=== PATIENT | female | born 1985 | race Caucasian/White ===

== ENCOUNTER 2018-01-10 15:55 | Inpatient (IN) | payer BC ==
[~2018-01-10] VITALS: Ht 165.1 cm; Wt 87.3 kg
[2018-01-10] MEDS ORDERED: LACTATED RINGER'S 1000ML 1,000 ML IV SCH ×2 (16:11→20:55)
[2018-01-10] MEDS ORDERED: LACTATED RINGER'S 1000ML 500 ML IV ONE (16:11)
[2018-01-10] MEDS ORDERED: ONDANSETRON 4 MG TAB PO PRN (16:15)
[2018-01-10] MEDS ORDERED: ACETAMINOPHEN 325 MG TAB PO PRN (16:15)
[2018-01-10 16:34] VITALS: Ht 165.1 cm; Wt 87.3 kg
[2018-01-10 16:34] LABS: BASO % 0.2 %; BASO ABS # 0.02 K/uL (0-0.2); EOS % 0.5 %; EOS ABS # 0.07 K/uL (0-0.5); HEMATOCRIT 37.7 % (37-47); HEMOGLOBIN 13.6 g/dL (12.0-16.0); IG# 0.08 K/uL (0.00-0.02); LYMPH % 16.6 %; LYMPH ABS # 2.13 K/uL (1.2-3.4); MEAN CELL VOLUME 88.5 fL (80-100); MEAN CORPUSCULAR HEMOGLOBIN 31.9 pg (25-34); MEAN CORPUSCULAR HGB CONC 36.1 g/dl (32-36); MEAN PLATELET VOLUME 11.7 fL (7.4-10.4); MONO % 7.6 %; MONO ABS # 0.98 K/uL (0.11-0.59); NEUT % 74.5 %; NEUT ABS # 9.57 K/uL (1.4-6.5); PLATELET COUNT 189 K/uL (130-400); RED CELL DISTRIBUTION WIDTH CV 12.9 % (11.5-14.5); RED CELL DISTRIBUTION WIDTH SD 41.2 fL (36.4-46.3); WHITE BLOOD COUNT 12.85 K/uL (4.8-10.8)
[2018-01-10] MEDS ORDERED: PREN-63 (16:34)
[2018-01-10 16:52] LABS: ALBUMIN 2.6 gm/dl (3.4-5.0); CALCIUM 8.6 mg/dl (8.5-10.1); CREATININE 0.65 mg/dl (0.60-1.20); POTASSIUM 3.9 mmol/L (3.5-5.1)
[2018-01-10 16:55] LABS: TOTAL PROTEIN 6.4 gm/dl (6.4-8.2)
[2018-01-10] MEDS: LABETALOL HCL 100 MG TAB PO SCH (18:21)
[2018-01-10] MEDS ORDERED: LACTATED RINGER'S 1000ML 1,000 ML IV PRN (20:55)
[2018-01-10] MEDS ORDERED: MAGNESIUM SULFATE / WTR 1,000 ML IV ONE (20:58)
[2018-01-10] MEDS ORDERED: LABETALOL HCL IV 5 MG/ML 20ML IV PRN (21:00)
[2018-01-10] MEDS ORDERED: HydrALAZINE HCL 20 MG/ML VIAL IV. PRN (21:00)
[2018-01-10] MEDS ORDERED: PENICILLIN G POTASSIUM IV 3 MU in DEXTROSE 5% 100ML 100 ML IV PRN (21:00)
[2018-01-10] MEDS ORDERED: BETAMETH SOD PHOS/ACETATE IA 6 MG/ML IM STA (21:15)
[2018-01-10] MEDS ORDERED: PENICILLIN G POTASSIUM IV 6 MU in DEXTROSE 5% 250ML 250 ML IV ONE (21:15)
[2018-01-10] MEDS ORDERED: DINOPROSTONE 10 MG INSERT PV ONE (21:15)
[2018-01-10] MEDS ORDERED: MAG SULFATE BOLUS FROM BAG IV ONE (21:30)
--- NOTE | 2018-01-10 22:41 | DIAGNOSTIC IMAGING REPORT ---
LIMITED (US) CLINICAL HISTORY: growth and ALIS COMPARISON STUDY: No previous studies for comparison. TECHNIQUE: Transabdominal sonography of the fetus was performed. FINDINGS: Please note that a dedicated anatomical survey was not performed. A single viable intrauterine gestation is noted with normal heart rate of 133 bpm. Presentation is vertex. The cervix was not well visualized on this exam. The placenta is located anteriorly and is within normal limits. Amniotic fluid index is normal at 10.6 cm. Biparietal diameter measured 9.3 cm which corresponds to an estimated gestational age of 38 weeks and 0 days. The head circumference measured 32.7 cm which corresponds to an estimated gestational age of 37 weeks and 0 days. Abdominal circumference measured 29.9 cm which corresponds to an estimated gestational age of 33 weeks and 6 days. Femur length measured 6.6 cm which corresponds to an estimated gestational age of 34 weeks and 1 day. Estimated weight on this exam is 5 pounds and 8 ounces. IMPRESSION: 1. Single viable intrauterine gestation with normal heart rate of 133 bpm. 2. Normal amniotic fluid index of 10.6 cm. 3. Estimated weight of 5 pounds and 8 ounces on this exam. Please see measurements above. 4. Anterior placenta with no placental abnormality identified. 5. Cervix not well visualized on this exam. Electronically signed by: Alcon Pete M.D. 01/10/2018 10:40 PM Dictated Date/Time: 01/10/2018 10:35 PM
[2018-01-10] MEDS ORDERED: LIDOCAINE HCL 2% JELLY 30 ML TUBE EXT ONE (23:47)
[2018-01-10] MEDS: MAGNESIUM SULFATE / WTR 1,000 ML IV SCH (23:54)
[2018-01-11] MEDS ORDERED: BUPIVACAINE 0.25% 30 ML VIAL ONE (05:15)
[2018-01-11] MEDS ORDERED: EpHEDrine SULFATE INJ 50 MG/ML AMP ONE (05:15)
[2018-01-11] MEDS ORDERED: FENTANYL CITRATE INJ 50 MCG/1 ML 2 ML VIAL ONE (05:16)
[2018-01-11] MEDS ORDERED: FENTANYL 2MCG/ML ROPIV 1.25MG/ML 100ML BAG EPI ONE (05:17)
[2018-01-11] MEDS ORDERED: LACTATED RINGER'S 1000ML 500 ML IV PRN (06:31)
[2018-01-11] MEDS ORDERED: NALOXONE HCL INJ 1 MG in SODIUM CHLORIDE 0.9% 1000ML 1,000 ML IV PRN ×4 (06:31)
[2018-01-11] MEDS ORDERED: OXYTOCIN 30 UNITS/500ML NSS IV ONE (06:44)
[2018-01-11] MEDS ORDERED: ONDANSETRON INJ 2 MG/ML 2 ML VIAL IV PRN (06:45)
[2018-01-11] MEDS ORDERED: NALOXONE HCL INJ 0.4 MG/1 ML VIAL/CARP IV PRN (06:45)
[2018-01-11] MEDS ORDERED: DiphenhydrAMINE HCL 50 MG/ML VIAL IV PRN (06:45)
[2018-01-11] MEDS ORDERED: NALBUPHINE HCL INJ 10 MG/ML AMP IV PRN (06:45)
[2018-01-11] MEDS ORDERED: EpHEDrine SULFATE INJ 50 MG/ML AMP IV PRN (06:45)
[2018-01-11] MEDS ORDERED: PROMETHAZINE HCL INJ 25 MG in SODIUM CHLORIDE 0.9% 50ML 50 ML IV PRN (06:45)
[2018-01-11] MEDS ORDERED: FENTANYL 2MCG/ML ROPIV 1.25MG/ML 100ML BAG EPI PRN (06:45)
[2018-01-11] MEDS ORDERED: LANOLIN OINT EXT PRN (07:15)
[2018-01-11] MEDS ORDERED: OXYCODONE/ACETAMINOPHEN 5-325 TAB PO PRN (07:15)
[2018-01-11] MEDS ORDERED: MEASLES, MUMPS & RUBELLA VIRUS VIAL SQ. ONE (07:15)
[2018-01-11] MEDS ORDERED: BENZOCAINE 20% AER SPR 82.5 GM CAN EXT PRN (07:15)
[2018-01-11] MEDS ORDERED: DIPHTHERIA/TETANUS/PERTUSSIS 0.5 ML SYR/VIAL IM. ONE (07:15)
[2018-01-11] MEDS ORDERED: ACETAMINOPHEN 325 MG TAB PO PRN (07:15)
[2018-01-11] MEDS ORDERED: SUPERCREAM 0.870 % 15GM JAR EXT PRN (07:15)
[2018-01-11] MEDS ORDERED: OXYTOCIN 30 UNITS/500ML NSS IV PRN (07:15)
[2018-01-11] MEDS ORDERED: HYDROCORTISONE ACETATE 25 MG SUPP PR PRN (07:15)
--- NOTE | 2018-01-11 07:35 | Anesthesia Procedure Note ---
Anesthesia Epidural Removal Nt Date & Time Jan 11, 2018 at 07:35 Vital Signs Pain Intensity: 0.0 Notes Mental Status: alert / awake / arousable, participated in evaluation Nausea / Vomiting: adequately controlled Pain: adequately controlled Airway Patency, RR, SpO2: stable & adequate BP & HR: stable & adequate Hydration State: stable & adequate Neuraxial Anesthesia: was administered, sensory block is resolving Anesthetic Complications: no major complications apparent, pt satisfied with anesthetic care Epidural: removed without complications, with tip intact
[2018-01-11] MEDS: LABETALOL HCL 100 MG TAB PO SCH ×2 (08:07→20:01)
[2018-01-11] MEDS: DOCUSATE SODIUM 100 MG CAP PO SCH ×2 (08:07→20:01)
[2018-01-11] MEDS: FERROUS SULFATE 325 MG TAB PO SCH (08:07)
--- NOTE | 2018-01-11 08:19 | DELIVERY SUMMARY ---
DATE OF OPERATION: 01/11/2018 TIME OF DELIVERY: 06:50 a.m. TIME OF DELIVERY OF PLACENTA: 07:04 a.m. DETAILS OF DELIVERY: The patient is a 32-year-old G3, P0-0-2-0 at 36 weeks and 2 days of gestation who was admitted on 01/10/2018 for preclampsia with severe features. Her labor was induced with Cervidil and she progressed into active labor spontaneously ruptured membranes and so Cervidil was removed. She received epidural for pain and then she progressed to fully dilatation. She was found to be fully dilated and desired to push. She pushed with 3 contractions and baby's heart rate was having declarations to 80s. Perineum muscles and skin were tight holding the baby's head. After verbal consent was obtained, a right mediolateral episiotomy was opened. Baby's head was delivered without difficulty and then shoulders and the body came altogether. There was a nuchal cord around the neck x1, which was reduced and the baby was handed off to the mother, where mouth and nose were suctioned. Cord was clamped x2 at 30 second delay and cut and baby was handed to the waiting nursery team. Cord blood was obtained. Perineum and the vagina were checked for lacerations. There was only small right mediolateral episiotomy which was opened earlier and rectal exam was done and confirmed to be a second degree and good sphincter tone was noted. Gloves were changed. This was repaired with 2-0 Vicryl in a running locked fashion and skin in a subcuticular fashion. Rest of the vagina and perineum were intact. Placenta was found to be in the vagina, delivered spontaneously intact and complete. Uterus was explored and found to be empty. Lower segment was cleared off all clots and debris. Fundus was firm. EBL was 200. Mom and baby tolerated the procedure well. Baby was a viable male , Apgars 8/9. Weight was 2180 gr. No complications happened and I was present during whole procedure. I attest to the content of the Intraoperative Record and any orders documented therein. Any exceptions are noted below. MTDD
[2018-01-11] MEDS: LACTATED RINGER'S 1000ML 1,000 ML IV SCH ×2 (09:04→20:49)
[2018-01-11] MEDS: CALCIUM CARBONATE 500 MG CHEWABLE PO PRN ×2 (16:54→23:05)
[2018-01-11] MEDS: IBUPROFEN 600 MG TAB PO PRN (17:56)
[2018-01-11] MEDS: MAGNESIUM SULFATE / WTR 1,000 ML IV SCH (23:35)
[2018-01-12] MEDS: IBUPROFEN 600 MG TAB PO PRN ×4 (01:44→21:32)
[2018-01-12 06:00] LABS: HEMATOCRIT 31.1 % (37-47); MEAN CELL VOLUME 89.9 fL (80-100); MEAN CORPUSCULAR HEMOGLOBIN 31.8 pg (25-34); MEAN CORPUSCULAR HGB CONC 35.4 g/dl (32-36); MEAN PLATELET VOLUME 10.9 fL (7.4-10.4); PLATELET COUNT 197 K/uL (130-400); RED CELL DISTRIBUTION WIDTH CV 13.5 % (11.5-14.5); RED CELL DISTRIBUTION WIDTH SD 44.1 fL (36.4-46.3); WHITE BLOOD COUNT 21.86 K/uL (4.8-10.8)
[2018-01-12 06:39] LABS: ALBUMIN 2.3 gm/dl (3.4-5.0); CREATININE 0.69 mg/dl (0.60-1.20); POTASSIUM 4.2 mmol/L (3.5-5.1)
[2018-01-12 06:44] LABS: TOTAL PROTEIN 5.7 gm/dl (6.4-8.2)
[2018-01-12] MEDS: DOCUSATE SODIUM 100 MG CAP PO SCH ×2 (08:11→19:47)
[2018-01-12] MEDS: LABETALOL HCL 100 MG TAB PO SCH ×2 (08:11→19:49)
[2018-01-12] MEDS: FERROUS SULFATE 325 MG TAB PO SCH (08:11)
--- NOTE | 2018-01-12 10:49 | OB/GYN Progress Note ---
TRAIN EXAMINER Progress Note Date of Service Jan 12, 2018. Subjective conversation w/ patient, physical exam Ambulation: limited ambulation Voiding: no voiding problems Passing Gas: Yes Diet Tolerance: Regular Diet Lochia: Small Feeding Type: Breast Feeding Objective Physical Exam General Appearance: WELL-APPEARING, NO APPARENT DISTRESS Abdomen: non tender, soft Fundus: Firm Extremities: non-tender, normal inspection, no pedal edema, no calf tenderness Laboratory Results Last 24 Hours Test 01/12/18 05:42 White Blood Count 21.86 K/uL Red Blood Count 3.46 M/uL Hemoglobin 11.0 g/dL Hematocrit 31.1 % Mean Corpuscular Volume 89.9 fL Mean Corpuscular Hemoglobin 31.8 pg Mean Corpuscular Hemoglobin Concent 35.4 g/dl RDW Standard Deviation 44.1 fL RDW Coefficient of Variation 13.5 % Platelet Count 197 K/uL Mean Platelet Volume 10.9 fL Sodium Level 136 mmol/L Potassium Level 4.2 mmol/L Chloride Level 105 mmol/L Carbon Dioxide Level 21 mmol/L Anion Gap 10.0 mmol/L Blood Urea Nitrogen 11 mg/dl Creatinine 0.69 mg/dl Est Creatinine Clear Calc Drug Dose 130.1 ml/min Estimated GFR () 135.4 Estimated GFR (Non- 116.8 BUN/Creatinine Ratio 15.5 Random Glucose 102 mg/dl Calcium Level 7.0 mg/dl Total Bilirubin 0.4 mg/dl Aspartate Amino Transf (AST/SGOT) 26 U/L Alanine Aminotransferase (ALT/SGPT) 17 U/L Alkaline Phosphatase 187 U/L Total Protein 5.7 gm/dl Albumin 2.3 gm/dl Globulin 3.4 gm/dl Albumin/Globulin Ratio 0.7 Assessment and Plan Post- Day Number: 1 Continue Routine Care: d/c Fernandes and Magnesium sulfate repeat CBC in AM
[2018-01-12 12:25] VITALS: BP 133/82; PULSE 82; TEMP 36.9
[2018-01-12 15:40] VITALS: BP 136/92; PULSE 87; TEMP 37.1
[2018-01-12] MEDS ORDERED: BISACODYL 5 MG TABEC PO SCH (20:00)
[2018-01-12 23:50] VITALS: BP 121/75; PULSE 91; TEMP 37
[2018-01-13] MEDS: IBUPROFEN 600 MG TAB PO PRN ×2 (02:47→08:36)
[2018-01-13 04:57] LABS: HEMATOCRIT 28.9 % (37-47); MEAN CORPUSCULAR HEMOGLOBIN 31.8 pg (25-34); MEAN PLATELET VOLUME 10.3 fL (7.4-10.4); PLATELET COUNT 173 K/uL (130-400); RED CELL DISTRIBUTION WIDTH CV 13.8 % (11.5-14.5); RED CELL DISTRIBUTION WIDTH SD 45.6 fL (36.4-46.3); WHITE BLOOD COUNT 17.98 K/uL (4.8-10.8)
[2018-01-13 05:25] LABS: MEAN CORPUSCULAR HGB CONC 34.6 g/dl (32-36)
[2018-01-13 05:30] LABS: ALBUMIN 2.2 gm/dl (3.4-5.0); ALKALINE PHOSPHATASE 166 U/L (45-117); ALT/SGPT 17 U/L (12-78); AST/SGOT 21 U/L (15-37); TOTAL PROTEIN 5.5 gm/dl (6.4-8.2)
[2018-01-13] MEDS ORDERED: BISACODYL 10 MG SUPP PR PRN (07:00)
[2018-01-13 07:45] VITALS: BP 145/87; PULSE 94; TEMP 37.4
[2018-01-13] MEDS: LABETALOL HCL 100 MG TAB PO SCH (08:34)
[2018-01-13] MEDS: DOCUSATE SODIUM 100 MG CAP PO SCH (08:36)
[2018-01-13] MEDS: FERROUS SULFATE 325 MG TAB PO SCH (08:36)
[2018-01-13] MEDS ORDERED: MTR600X PO (09:40)
--- NOTE | 2018-01-13 09:41 | Discharge Instructions ---
Discharge Instructions Date of Service Jan 13, 2018. Admission Reason for Admission: Elevated Blood Pressure Discharge Discharge Diagnosis / Problem: TERM DELIVERED Discharge Goals Goal(s): Routine recovery after delivery Activity Recommendations Activity Limitations: as noted below Lifting Limitations: no more than 10 pounds Exercise/Sports Limitations: gradually increase as tolerated May Resume Sexual Activity: after follow-up appointment Shower/Bathe: no limitations Driving or Machine Use: resume 3 days after discharge . Instructions / Follow-Up Instructions / Follow-Up ACTIVITY RECOMMENDATIONS: * Gradual return to full activity over the next 2-3 weeks. * No lifting - nothing heavier than baby over the next 2-3 weeks. * Do not engage in vigorous exercise, sexual activity or sports until cleared by your physician. * Do not drive or operate any motorized equipment until cleared by your physician. * You may shower/bathe daily. BREAST CARE: If you are not breast feeding: * Wear a supportive bra 24 hours a day for one to two weeks. * Avoid stimulating your breasts and nipples as much as possible during the first few weeks after delivery. * When taking a shower, have the warm water hit your back, not breasts. * When your breasts feel full, apply ice packs. Usually three to four times a day helps ease the discomfort. * Take a mild pain medication (Tylenol/Motrin) when you are uncomfortable. If breast feeding: * Use breast milk to lubricate nipples. Lansinoh cream may be used for sore nipples. You do not need to remove cream prior to breast feeding. If using a different brand of cream, check the label for directions regarding removal of cream prior to nursing. * Wear a supportive bra. * If having problems with breasts or breast feeding, call a cycle consultant or your health care provider. EPISIOTOMY CARE: After delivery, if you have an episiotomy (stitches), the following steps will ease discomfort and aid healing. * For the first 24 hours after delivery, place ice packs next to your episiotomy to help reduce swelling. * After the first 24 hour-period, sitz baths, either portable or in the tub, are suggested. A shower with a shower arm sprayed over the episiotomy may be comforting. * Karlie care should be done after each voiding and bowel movement. Squirt warm water from a plastic bottle over the perineum (region of the body between the anus and urinary opening) and pat dry. * Use Dermoplast to ease discomfort. Shake container. [place] directly over the episiotomy. * Place a Tucks on a clean sanitary pad next to your episiotomy. OVER THE COUNTER MEDICATION: * For discomfort or pain, you may use Acetaminophen (Tylenol), Ibuprofen (Advil ), or Naproxen (Aleve) following the package directions. * For constipation you may use Colace following the package directions. SPECIAL CARE INSTRUCTIONS: When you are discharged from the hospital, it is important for you to follow the instructions listed below: * During the first week at home, you should be able to care for yourself and your baby. In addition, the usual light household activities are encouraged. * Limit your activities to the way you feel. Do not try to clean the house or move furniture. Be sensible. * If you actively engage in sports and have done so up until the time of your delivery, you may resume these activities as soon as you feel able. This may take up to one month or even longer. Use good judgment. * Continue to take your vitamins for at least six weeks after the of your baby. * Your diet need not be limited unless you were on a special diet before your delivery. Breast-feeding mothers need around 2500 calories per day and at least 64-80 ounces of fluid per day (8 to 10 glasses). * You should eat foods from the four major food groups. Crash diets or fad diets are to be avoided. Eating lean meats, fresh fruits and vegetables, low-fat dairy products, high fiber foods and a regular exercise program, will help you get back to your pre- weight without putting your health at risk. * Constipation is sometimes a problem after delivery. Take a mild laxative as needed. If breast feeding, Milk of Magnesia is acceptable to use. You may use a suppository or Fleets enema if no episiotomy. * A daily shower or tub bath is suggested. Be sure to thoroughly and gently dry the perineum. * A bloody vaginal discharge will usually continue until around four weeks post . A small amount of bleeding may continue for as long as six weeks. Vaginal discharge changes from the bright red bleeding after delivery to pink then brownish and finally yellowish-pink before becoming white and disappearing. * Bleeding may increase with activity. Your first period may come in 4-8 weeks. If you are breast feeding, your period may be delayed even longer. * [place] (sex) can begin whenever both you and your partner feel comfortable and do not have any form of genital infection. It is recommended that you wait until after your return appointment and discuss with your physician. If you have questions, please talk to your health care practitioner. A condom should be used to prevent infection and . * Foreplay, gentle intercourse and lubrication is very important the first several times to prevent pain. A water-based lubricant such as K-Y jelly or Astroglide may be used. * Tampons may be used six weeks after delivery. * Douching should be avoided for 6 weeks after delivery. * If you have RH negative blood and your baby is RH positive, you will receive RHOGAM by injection prior to discharge. The nurse will give you a card to keep with you that has the date and place that you received RHOGAM after delivery. * During your care, you had a Rubella screen done to check for the presence of rubella antibodies in your blood. If your test was negative, you will receive a Rubella vaccine prior to discharge. This vaccine may cause a fever, soreness at the injection site and flu-like symptoms. If these symptoms persist, notify your health care practitioner. is not advised for three months after a Rubella vaccine. There is a higher chance of having a baby with defects if conceived within three months of getting the vaccine. * If you were discharged 24 hours from delivery or before 48 hours: Visiting nurses will come to your home 48 hours after discharge to assess you and your baby. The visiting nurse will meet with you while you are in the hospital to arrange a time and get directions to your home. * Verbalizes understanding of car seat law as reviewed with patient nursing. * Car Seat hand-out given and reviewed with patient by nursing. * Shaken baby information reviewed with patient by nursing. Call you doctor if: * Heavy bleeding (saturating several pads an hour) or passing clots the size of your fist. * A fever >101 degrees F (38.3 degrees C) on two occasions four hours apart and/or chills. * Unusual pain in the pelvic or vaginal areas. * "Baby Blues" lasting longer than two weeks. If you have any questions or concerns, call your health care practitioner at . FOLLOW-UP VISIT: * Please call the office at to schedule a 6 week examination. It is important you keep this appointment. * It is important for you to make arrangements for either yearly or twice yearly check-ups thereafter. Current Hospital Diet Patient's current hospital diet: Regular OB Diet Discharge Diet Recommended Diet: Regular OB Diet Fluid Restriction: None Pending Studies Studies pending at discharge: no Medical Emergencies . Who to Call and When: Medical Emergencies: If at any time you feel your situation is an emergency, please call 911 immediately. . Non-Emergent Contact Non-Emergency issues call your: Primary Care Provider . . "Provider Documentation" section prepared by Freddy Gandhi. . VTE Core Measure Inpt VTE Proph given/why not?: Treatment not indicated
--- NOTE | 2018-01-13 09:54 | OB/GYN Progress Note ---
BOX HINGE AND LOCK ATTACHER Progress Note Date of Service Jan 13, 2018. Subjective conversation w/ patient, physical exam Ambulation: ambulating normally Voiding: no incontinence Passing Gas: Yes Diet Tolerance: Regular Diet Lochia: Small Feeding Type: Breast Feeding Objective Vital Signs Date Time Temp Pulse Resp B/P (MAP) Pulse Ox O2 Delivery O2 Flow Rate FiO2 01/12/18 23:50 Room Air 01/12/18 23:50 37.0 91 20 121/75 (90) Room Air 01/12/18 15:40 37.1 87 20 136/92 (107) 01/12/18 12:25 Room Air 01/12/18 12:25 36.9 82 20 133/82 (99) Room Air Physical Exam General Appearance: WELL-APPEARING, NO APPARENT DISTRESS Abdomen: non tender Fundus: Firm Extremities: non-tender, normal inspection, no pedal edema, no calf tenderness Laboratory Results Last 24 Hours Test 01/13/18 04:49 White Blood Count 17.98 K/uL Red Blood Count 3.14 M/uL Hemoglobin 10.0 g/dL Hematocrit 28.9 % Mean Corpuscular Volume 92.0 fL Mean Corpuscular Hemoglobin 31.8 pg Mean Corpuscular Hemoglobin Concent 34.6 g/dl RDW Standard Deviation 45.6 fL RDW Coefficient of Variation 13.8 % Platelet Count 173 K/uL Mean Platelet Volume 10.3 fL Total Bilirubin 0.2 mg/dl Direct Bilirubin < 0.1 mg/dl Aspartate Amino Transf (AST/SGOT) 21 U/L Alanine Aminotransferase (ALT/SGPT) 17 U/L Alkaline Phosphatase 166 U/L Total Protein 5.5 gm/dl Albumin 2.2 gm/dl Assessment and Plan Post- Day Number: 2 Continue Routine Care: DISCHARGED FOLLOW UP IN 1 WEEK IN OFFICE FOR BP CHECK
[2018-01-13 11:15] VITALS: BP_DIAS 87; PULSE 94; TEMP 37.4
[2018-01-13] MEDS ORDERED: LBT100 PO (11:18)
== END 2018-01-13 11:55 | disposition home or self-care (01) | DRG 775 ==
LOC: C.OPB 15:55 → C.LD 15:55 → C.OPB 20:57 → C.LD 22:08 → C.OBG 01-12 14:43
PROVIDERS: ADMIT Obstetrics & Gynecology; ATTEND Obstetrics & Gynecology
PROC: 3E0P7GC Introduction of Other Therapeutic Substance into Female Reproductive, Via Natural or Artificial Opening (ICD-10-PCS; principal; 2018-01-10)
PROC: 10E0XZZ Delivery of Products of Conception, External Approach (ICD-10-PCS; 2018-01-11)
PROC: 0W8NXZZ Division of Female Perineum, External Approach (ICD-10-PCS; 2018-01-11)
DX: O14.14 Severe pre-eclampsia complicating childbirth (principal); O69.81X0 Labor and delivery complicated by cord around neck, without compression, not applicable or unspecified; O76 Abnormality in fetal heart rate and rhythm complicating labor and delivery; Z3A.36 36 weeks gestation of pregnancy; Z37.0 Single live birth

== ENCOUNTER 2021-05-27 15:32 | Inpatient (IN) ==
[2021-05-27] MEDS ORDERED: OXYTOCIN 30 UNITS/500 ML BAG IV PRN ×3 (16:32→22:53)
[2021-05-27 17:07] LABS: Hematocrit (blood only) 36.1 % (37-47); Hemoglobin 12.9 g/dL (12.0-16.0); Mean Corpuscular Hemoglobin 32.3 pg (25-34); Mean Corpuscular Hgb Conc 35.7 g/dL (32-36); Mean Corpuscular Volume 90.5 fL (80-100); Mean Platelet Volume 11.5 fL (7.4-10.4); Platelet Count 191 K/uL (130-400); RDW Coefficient of Variation 13.5 % (11.5-14.5); RDW Standard Deviation 43.9 fL (36.4-46.3); Red Blood Count 3.99 M/uL (4.2-5.4); White Blood Count 12.53 K/uL (4.8-10.8)
--- NOTE | 2021-05-27 17:20 | Labor Progress Brief Note ---
Date of Service May 27, 2021 Subjective Reason For Note: Routine Evaluation Admit Note 36 F P1011 at 36.3 weeks admitted with SROM clear fluid this AM. Cervix 3/60/- 2/vertex/posterior/firm. GBS is negativwe. FHT Cat 1 with irregular contractions. EFW 7 lbs. Will admit and start Oxytocin to augment contractions. Anticipate normal delivery. Assessment & Plan Admission and Anticipated Discharge Date Admission Date: May 27, 2021 Results & Data ([facility]) Vital Signs (Past 12 Hours) Vital Signs Temp Pulse Resp BP 05/27/21 16:30 22 05/27/21 16:00 37.1 C 20 05/27/21 15:53 95 H 134/80
[2021-05-27] MEDS: LACTATED RINGER'S 1,000 ML IV PRN ×2 (18:13→19:48)
[2021-05-27] MEDS ORDERED: BUPIVACAINE 0.25% 30 ML VIAL ONE (18:54)
[2021-05-27] MEDS ORDERED: ePHEDrine sulfate 50 MG/ML AMP ONE (18:54)
[2021-05-27] MEDS ORDERED: SODIUM CHLORIDE 0.9% INJ 10 ML VIAL ONE (18:54)
[2021-05-27] MEDS ORDERED: fentaNYL citrate 100 MCG/2 ML VIAL ONE (18:55)
[2021-05-27] MEDS ORDERED: fentaNYL 2MCG/ML ROPIVACAINE 1.25MG/ML 100 ML BAG EPI ONE (18:55)
[2021-05-27] MEDS ORDERED: NALOXONE HCL 1 MG in SODIUM CHLORIDE 0.9% 1000ML 1,000 ML IV PRN (19:26)
[2021-05-27] MEDS ORDERED: ePHEDrine sulfate 50 MG/ML AMP IV PRN (19:26)
[2021-05-27] MEDS ORDERED: NALOXONE HCL 0.4 MG/1 ML VIAL/CARP IV PRN (19:26)
[2021-05-27] MEDS ORDERED: NALBUPHINE HCL INJ 10 MG/ML AMP IV PRN (19:26)
[2021-05-27] MEDS ORDERED: fentaNYL 2MCG/ML ROPIVACAINE 1.25MG/ML 100 ML BAG EPI PRN (19:26)
[2021-05-27] MEDS ORDERED: diphenhydrAMINE 50 MG/ML VIAL IV PRN (19:26)
[2021-05-27] MEDS ORDERED: ONDANSETRON INJ 2 MG/ML 2 ML VIAL IV PRN (19:26)
--- NOTE | 2021-05-27 19:28 | Anesthesiology Consultation ---
Date of Service May 27, 2021 History Height/Weight Height: 5 ft 5 in Weight: 84.368 kg Allergies Allergy/AdvReac Type Severity Reaction Status Date / Time No Known Allergies Allergy Unverified 01/10/18 16:15 Medications Home Medications Medication Instructions Recorded Confirmed Last Taken aspirin 81 mg PO DAILY 05/27/21 05/27/21 05/26/21 prenat.vits,cristhian,bwi-bmcv-zbmik 1 tab PO DAILY 05/27/21 05/27/21 05/27/21 [ Vitamin] Active Medications Generic Name Dose Route Start Last Admin Trade Name Freq PRN Reason Stop Dose Admin Lactated Ringer's 1,000 mls @ 125 mls/hr 05/27/21 16:32 05/27/21 18:13 Lr IV 05/29/21 16:31 125 mls/hr .Q8H PRN Administration L&D Protocol Protocol Oxytocin 30 units in 500 mls @ 1 mls/hr 05/27/21 17:08 05/27/21 18:13 Pitocin IV 05/29/21 17:07 0.06 units/hr .Q24H PRN 1 mls/hr Labor Induction/Augmentation Administration Protocol 0.06 UNITS/HR Past Medical History Medical History Mitral valve regurgitation Preeclampsia Exercise / Class Metabolic Activity II 4-5 Yardwork/Stairs/Walk up hill Past Surgical History Surgical History No history of previous surgery Past Anesthesia History No Hx of Anesthesia Complications and No Family Hx of Anesthesia Complications History of PONV No Hx of PONV and No Hx of Motion Sickness Social History Smoking Status: Never smoker Hx Alcohol Use: No Hx Substance Use: No Physical Exam Vital Signs Last Vital Signs Temp 37.1 C 05/27/21 18:58 Pulse 97 H 05/27/21 19:44 Resp 18 05/27/21 18:58 BP 135/81 05/27/21 19:42 Pulse Ox 97 05/27/21 19:44 Testing Laboratory Results 05/27/21 16:49
--- NOTE | 2021-05-27 20:37 | Labor Progress Brief Note ---
Date of Service May 27, 2021 Assessment & Plan Admission and Anticipated Discharge Date Admission Date: May 27, 2021 Physical Exam Genitourinary: Manual OB Exam: + cervical dilation 4 cm, + cervical effacement 80%, + station -2 and + amniotic fluid clear OB Exam Monitor Tracing: + external FHT monitor used, + external uterine monitor used, + category I and + normal FHT variability Results & Data ([facility]) Vital Signs (Past 12 Hours) Vital Signs Temp Pulse Resp BP Pulse Ox 05/27/21 20:34 92 H 98 05/27/21 20:29 91 H 116/58 L 97 05/27/21 20:24 93 H 98 05/27/21 20:19 94 H 98 05/27/21 20:14 90 18 121/60 97 05/27/21 20:12 134 H 169/127 H 05/27/21 20:09 93 H 97 05/27/21 20:06 85 123/59 L 05/27/21 20:04 99 H 97 05/27/21 20:03 36.8 C 96 H 18 120/63 05/27/21 20:00 90 18 116/59 L 05/27/21 19:59 99 H 96 05/27/21 19:57 93 H 116/57 L 05/27/21 19:54 94 H 120/59 L 97 05/27/21 19:51 103 H 18 123/66 05/27/21 19:49 101 H 96 05/27/21 19:48 92 H 18 121/63 05/27/21 19:45 93 H 133/70 05/27/21 19:44 97 H 97 05/27/21 19:42 107 H 135/81 05/27/21 19:39 100 H 96 05/27/21 19:34 104 H 98 05/27/21 19:29 103 H 97 05/27/21 18:58 37.1 C 100 H 18 135/78 05/27/21 18:55 18 05/27/21 18:30 18 05/27/21 18:15 37.0 C 05/27/21 18:00 18 05/27/21 17:00 18 05/27/21 16:30 22 05/27/21 16:00 37.1 C 20 05/27/21 15:53 95 H 134/80
--- NOTE | 2021-05-27 22:31 | Delivery Summary ---
Vaginal Delivery Summary Date of Service May 27, 2021 Vaginal Delivery Summary Delivery note live female over intact perineum SERAFIN with delayed cord clamping and Apgars 8/9 weight pending. Cord blood obtained followed by spontaneous delivery of intact placenta. No tears. EBL 100 ml. Final sponge and instrument count are correct. Mom and baby stable.
[2021-05-27] MEDS ORDERED: SUPERCREAM 0.870% 15 GM JAR EXT PRN (22:53)
[2021-05-27] MEDS ORDERED: HYDROCORTISONE ACETATE 25 MG SUPP PR PRN (22:53)
[2021-05-27] MEDS ORDERED: DIPHTHERIA/TETANUS/PERTUSSIS 0.5 ML SYR/VIAL IM ONE (22:53)
[2021-05-27] MEDS ORDERED: ACETAMINOPHEN 325 MG TAB PO PRN (22:53)
[2021-05-27] MEDS ORDERED: bisacodyL 10 MG SUPP PR PRN (22:53)
[2021-05-28] MEDS: BENZOCAINE 20% AER SPR 82.5 GM CAN EXT PRN (01:01)
[2021-05-28] MEDS: IBUPROFEN 600 MG TAB PO PRN ×4 (01:01→23:37)
[2021-05-28 06:12] LABS: Hematocrit (blood only) 35.3 % (37-47); Hemoglobin 12.2 g/dL (12.0-16.0); Mean Corpuscular Hemoglobin 32.1 pg (25-34); Mean Corpuscular Hgb Conc 34.6 g/dL (32-36); Mean Corpuscular Volume 92.9 fL (80-100); Mean Platelet Volume 11.4 fL (7.4-10.4); Platelet Count 176 K/uL (130-400); RDW Coefficient of Variation 13.5 % (11.5-14.5); RDW Standard Deviation 45.8 fL (36.4-46.3); White Blood Count 14.01 K/uL (4.8-10.8)
--- NOTE | 2021-05-28 08:04 | Obstetrical Progress Note ---
Date of Service May 28, 2021 Assessment & Plan Admission and Anticipated Discharge Date Admission Date: May 27, 2021 Subjective Patient is seen and examined. She feels well, no complaints. Ambulating without dizziness Voiding without difficulty Tolerating regular diet with out N&V Bleeding is minimal No fever/ chills/ CP/ SOB/ N&V/ Leg pain Breast feeding without problems Vital Signs Temp Pulse Pulse Resp BP BP Pulse Ox 05/28/21 04:30 36.8 C 80 16 118/70 05/28/21 00:55 37.1 C 91 H 18 118/76 05/28/21 00:40 100 H 116/62 05/28/21 00:25 36.8 C 97 H 18 118/65 05/28/21 00:10 95 H 120/67 05/27/21 23:55 93 H 18 116/60 05/27/21 23:40 92 H 117/59 L 05/27/21 23:25 93 H 18 114/70 05/27/21 23:10 99 H 18 111/62 05/27/21 22:55 99 H 18 109/61 05/27/21 22:40 105 H 18 121/71 05/27/21 22:33 115 H 94 05/27/21 22:29 94 H 96 05/27/21 22:25 101 H 18 117/72 05/27/21 22:24 111 H 96 05/27/21 22:19 114 H 96 05/27/21 22:15 96 H 132/83 05/27/21 22:14 100 H 98 05/27/21 22:09 118 H 100 05/27/21 22:06 103 H 93 05/27/21 22:04 114 H 94 05/27/21 22:00 111 H 90 05/27/21 21:59 94 H 136/75 98 05/27/21 21:54 107 H 99 05/27/21 21:49 114 H 98 05/27/21 21:45 110 H 125/75 05/27/21 21:44 106 H 97 05/27/21 21:39 97 H 96 05/27/21 21:34 98 H 98 05/27/21 21:31 100 H 18 119/70 05/27/21 21:29 101 H 97 05/27/21 21:24 102 H 96 05/27/21 21:19 94 H 97 05/27/21 21:15 106 H 121/78 05/27/21 21:14 100 H 96 05/27/21 21:09 90 98 05/27/21 21:04 93 H 96 05/27/21 21:00 95 H 117/64 05/27/21 20:59 89 96 05/27/21 20:54 93 H 98 05/27/21 20:49 93 H 97 05/27/21 20:44 86 18 122/58 L 96 05/27/21 20:39 89 97 05/27/21 20:34 92 H 98 05/27/21 20:29 91 H 116/58 L 97 05/27/21 20:24 93 H 98 05/27/21 20:19 94 H 98 05/27/21 20:14 90 18 121/60 97 05/27/21 20:12 134 H 169/127 H 05/27/21 20:09 93 H 97 05/27/21 20:06 85 123/59 L Lab Results 05/27/21 05/27/21 05/27/21 Range/Units 16:49 Unknown Unknown WBC 12.53 H (4.8-10.8) K/uL RBC 3.99 L (4.2-5.4) M/uL Hgb 12.9 (12.0-16.0) g/dL Hct 36.1 L (37-47) % MCV 90.5 (80-100) fL MCH 32.3 (25-34) pg MCHC 35.7 (32-36) g/dL RDW Std Deviation 43.9 (36.4-46.3) fL RDW Coeff of Daniela 13.5 (11.5-14.5) % Plt Count 191 (130-400) K/uL MPV 11.5 H (7.4-10.4) fL COVID-19 Eval Order Covid19 [facility]Now atMFL[facility] SARS-CoV-2, RNA, NAAT NEGATIVE (NEGATIVE) 05/28/21 Range/Units 05:50 WBC 14.01 H (4.8-10.8) K/uL RBC 3.80 L (4.2-5.4) M/uL Hgb 12.2 (12.0-16.0) g/dL Hct 35.3 L (37-47) % MCV 92.9 (80-100) fL MCH 32.1 (25-34) pg MCHC 34.6 (32-36) g/dL RDW Std Deviation 45.8 (36.4-46.3) fL RDW Coeff of Daniela 13.5 (11.5-14.5) % Plt Count 176 (130-400) K/uL MPV 11.4 H (7.4-10.4) fL COVID-19 Eval Order SARS-CoV-2, RNA, NAAT (NEGATIVE) PE: General: Alert, orientedx3, NAD Abd: soft, NT, fundus firm, below Umbilicus Perineum intact, Lochia rubra minimal Ext; NT, no edema AP: 36 yo s/p , ppd# 1 VSS Afebrile doing well Continue routine care All questions were answered D/C home tomorrow Results & Data ([facility]) Vital Signs (Past 12 Hours) Vital Signs Temp Pulse Pulse Resp BP BP Pulse Ox 05/28/21 04:30 36.8 C 80 16 118/70 05/28/21 00:55 37.1 C 91 H 18 118/76 05/28/21 00:40 100 H 116/62 05/28/21 00:25 36.8 C 97 H 18 118/65 05/28/21 00:10 95 H 120/67 05/27/21 23:55 93 H 18 116/60 05/27/21 23:40 92 H 117/59 L 05/27/21 23:25 93 H 18 114/70 05/27/21 23:10 99 H 18 111/62 05/27/21 22:55 99 H 18 109/61 05/27/21 22:40 105 H 18 121/71 05/27/21 22:33 115 H 94 05/27/21 22:29 94 H 96 05/27/21 22:25 101 H 18 117/72 05/27/21 22:24 111 H 96 05/27/21 22:19 114 H 96 05/27/21 22:15 96 H 132/83 05/27/21 22:14 100 H 98 05/27/21 22:09 118 H 100 05/27/21 22:06 103 H 93 05/27/21 22:04 114 H 94 05/27/21 22:00 111 H 90 05/27/21 21:59 94 H 136/75 98 05/27/21 21:54 107 H 99 05/27/21 21:49 114 H 98 05/27/21 21:45 110 H 125/75 05/27/21 21:44 106 H 97 05/27/21 21:39 97 H 96 05/27/21 21:34 98 H 98 05/27/21 21:31 100 H 18 119/70 05/27/21 21:29 101 H 97 05/27/21 21:24 102 H 96 05/27/21 21:19 94 H 97 05/27/21 21:15 106 H 121/78 05/27/21 21:14 100 H 96 05/27/21 21:09 90 98 05/27/21 21:04 93 H 96 05/27/21 21:00 95 H 117/64 05/27/21 20:59 89 96 05/27/21 20:54 93 H 98 05/27/21 20:49 93 H 97 05/27/21 20:44 86 18 122/58 L 96 05/27/21 20:39 89 97 05/27/21 20:34 92 H 98 05/27/21 20:29 91 H 116/58 L 97 05/27/21 20:24 93 H 98 05/27/21 20:19 94 H 98 05/27/21 20:14 90 18 121/60 97 05/27/21 20:12 134 H 169/127 H 05/27/21 20:09 93 H 97 05/27/21 20:06 85 123/59 L 05/27/21 20:04 99 H 97
[2021-05-28] MEDS: PRENATAL VITAMIN 1 TAB PO SCH (08:35)
[2021-05-28] MEDS: DOCUSATE SODIUM 100 MG CAP PO SCH ×2 (08:35→20:48)
[2021-05-28] MEDS ORDERED: NON-FORMULARY MEDICATION (Prenat.Vits,Cal,Min-Iron-Folic Tablet) PO SCH (09:00)
[2021-05-28] MEDS ORDERED: ASPIRIN 81 MG ECTAB PO SCH (09:00)
--- NOTE | 2021-05-28 11:01 | Anesthesia Procedure Note ---
Date of Service May 28, 2021 Anesthesia Post Epidural Note Vital Signs Vital Signs: Temp Pulse Resp BP Pulse Ox 37 C 83 16 122/70 97 05/28/21 07:20 05/28/21 07:20 05/28/21 07:20 05/28/21 07:20 05/28/21 07:20 Pain Intensity Bilateral Lower Perineal: Pain Intensity: 2 Bilateral Abdomen: Pain Intensity: 2 Notes Mental Status: alert / awake / arousable Nausea / Vomiting: adequately controlled Pain: adequately controlled Airway Patency, RR, SpO2: stable & adequate BP & HR: stable & adequate Hydration State: stable & adequate Neuraxial Anesthesia: sensory block resolved Anesthetic Complications: no major complications apparent and Pt Satisfied with anesthetic care Epidural: Removed without complications and With tip intact
[2021-05-28] MEDS ORDERED: bisacodyL 5 MG TABEC PO SCH (20:00)
[2021-05-29 05:55] LABS: Hematocrit (blood only) 33.3 % (37-47); Hemoglobin 11.5 g/dL (12.0-16.0); Mean Corpuscular Hemoglobin 32.4 pg (25-34); Mean Corpuscular Hgb Conc 34.5 g/dL (32-36); Mean Corpuscular Volume 93.8 fL (80-100); Mean Platelet Volume 10.9 fL (7.4-10.4); Platelet Count 160 K/uL (130-400); RDW Coefficient of Variation 13.6 % (11.5-14.5); RDW Standard Deviation 46.7 fL (36.4-46.3); Red Blood Count 3.55 M/uL (4.2-5.4); White Blood Count 10.97 K/uL (4.8-10.8)
[2021-05-29 06:24] LABS: ALC (manual) 1.62 K/uL (1.2-3.4); Eosinophils # (manual) 0.47 K/uL (0-0.5); Eosinophils % (manual) 4.3 %; Lymphocytes # (manual) 1.62 K/uL (1.2-3.4); Lymphocytes % (manual) 14.8 %; Monocytes # (manual) 0.47 K/uL (0.11-0.59); Monocytes % (manual) 4.3 %; Neutrophils % (manual) 76.6 %
[2021-05-29] MEDS: IBUPROFEN 600 MG TAB PO PRN (08:46)
[2021-05-29] MEDS: DOCUSATE SODIUM 100 MG CAP PO SCH (08:46)
[2021-05-29] MEDS: PRENATAL VITAMIN 1 TAB PO SCH (08:46)
[2021-05-29] MEDS: BENZOCAINE 20% AER SPR 82.5 GM CAN EXT PRN (10:10)
--- NOTE | 2021-05-29 10:16 | Obstetrical Progress Note ---
Date of Service May 29, 2021 Assessment & Plan Admission and Anticipated Discharge Date Admission Date: May 27, 2021 Subjective Patient is seen and examined. She feels well, no complaints. Ambulating without dizziness Voiding without difficulty Tolerating regular diet with out N&V Bleeding is minimal No fever/ chills/ CP/ SOB/ N&V/ Leg pain Breast feeding without problems Vital Signs Temp Pulse Pulse Resp BP Pulse Ox 05/29/21 09:03 36.8 C 80 80 18 121/82 99 05/29/21 07:15 36.8 C 80 18 121/82 99 05/28/21 23:35 36.7 C 80 16 117/76 98 Lab Results 05/27/21 05/27/21 05/27/21 Range/Units 16:49 Unknown Unknown WBC 12.53 H (4.8-10.8) K/uL RBC 3.99 L (4.2-5.4) M/uL Hgb 12.9 (12.0-16.0) g/dL Hct 36.1 L (37-47) % MCV 90.5 (80-100) fL MCH 32.3 (25-34) pg MCHC 35.7 (32-36) g/dL RDW Std Deviation 43.9 (36.4-46.3) fL RDW Coeff of Daniela 13.5 (11.5-14.5) % Plt Count 191 (130-400) K/uL MPV 11.5 H (7.4-10.4) fL Neutrophils % (Manual) % Lymphocytes % (Manual) % Monocytes % (Manual) % Eosinophils % (Manual) % Neutrophils # (Manual) (1.4-6.5) K/uL Total Absolute Neuts (1.4-6.5) K/uL Lymphocytes # (Manual) (1.2-3.4) K/uL Total Abs Lymphocytes (1.2-3.4) K/uL Monocytes # (Manual) (0.11-0.59) K/uL Eosinophils # (Manual) (0-0.5) K/uL COVID-19 Eval [facility] SARS-CoV-2, RNA, NAAT NEGATIVE (NEGATIVE) 05/28/21 05/29/21 Range/Units 05:50 05:40 WBC 14.01 H 10.97 H (4.8-10.8) K/uL RBC 3.80 L 3.55 L (4.2-5.4) M/uL Hgb 12.2 11.5 L (12.0-16.0) g/dL Hct 35.3 L 33.3 L (37-47) % MCV 92.9 93.8 (80-100) fL MCH 32.1 32.4 (25-34) pg MCHC 34.6 34.5 (32-36) g/dL RDW Std Deviation 45.8 46.7 H (36.4-46.3) fL RDW Coeff of Daniela 13.5 13.6 (11.5-14.5) % Plt Count 176 160 (130-400) K/uL MPV 11.4 H 10.9 H (7.4-10.4) fL Neutrophils % (Manual) 76.6 % Lymphocytes % (Manual) 14.8 % Monocytes % (Manual) 4.3 % Eosinophils % (Manual) 4.3 % Neutrophils # (Manual) 8.40 H (1.4-6.5) K/uL Total Absolute Neuts 8.40 H (1.4-6.5) K/uL Lymphocytes # (Manual) 1.62 (1.2-3.4) K/uL Total Abs Lymphocytes 1.62 (1.2-3.4) K/uL Monocytes # (Manual) 0.47 (0.11-0.59) K/uL Eosinophils # (Manual) 0.47 (0-0.5) K/uL COVID-19 Eval Order SARS-CoV-2, RNA, NAAT (NEGATIVE) PE: General: Alert, orientedx3, NAD Abd: soft, NT, fundus firm, below Umbilicus Perineum intact, Lochia rubra minimal Ext; NT, no edema AP: 36 yo s/p , ppd# 2 VSS Afebrile doing well Continue routine care All questions were answered Discussed when to call D/C home , f/u in office Results & Data ([facility]) Vital Signs (Past 12 Hours) Vital Signs Temp Pulse Pulse Resp BP Pulse Ox 05/29/21 09:03 36.8 C 80 80 18 121/82 99 05/29/21 07:15 36.8 C 80 18 121/82 99 05/28/21 23:35 36.7 C 80 16 117/76 98
== END 2021-05-29 11:40 | disposition home or self-care (01) | DRG 807 ==
LOC: OPB 15:32 → 4S1 15:34 → 4S2 05-28 01:12